=== PATIENT | male | born 1960 | race Caucasian/White ===

== ENCOUNTER 2023-06-16 07:28 | Inpatient (IN) | payer OTHER ==
[~2023-06-16] VITALS: Ht 180.3 cm; Wt 48.5 kg
[2023-06-16 09:09] LABS: PROTHROMBIN TIME 10.9 sec (9.6-11.0)
[2023-06-16 09:16] LABS: ALANINE AMINOTRANSFERASE 21 IU/L (10-49); ALBUMIN 4.9 g/dL (3.2-4.8); ASPARTATE AMINOTRANSFERASE 24 IU/L (<34); BILIRUBIN TOTAL 0.5 mg/dL (0.1-1.0); CALCIUM 9.4 mg/dL (8.7-10.4); CARBON DIOXIDE 25 mEq/L (21-32); CHLORIDE 103 mEq/L (98-107); GLUCOSE 119 mg/dL (70-105); POTASSIUM 4.3 mEq/L (3.5-5.1); PROTEIN TOTAL 8.2 g/dL (6.0-8.3); SODIUM 136 mEq/L (136-145); TROPONIN I HIGH SENSITIVITY 15 ng/L (3.0-53); UREA NITROGEN BLOOD 9 mg/dL (9-23)
[2023-06-16 09:19] LABS: BASOPHILS % 1.1 % (0.0-2.0); EOSINOPHILS % 1.3 % (0.0-5.0); HEMATOCRIT. 42.2 % (42.0-52.0); HEMOGLOBIN. 14.5 g/dL (14.0-18.0); LYMPHOCYTES % 29.4 % (20.0-50.0); MEAN CORPUSCULAR HEMOGLOBIN 31.8 pg (28.0-32.0); MEAN CORPUSCULAR HGB CONC 34.4 g/dL (31.0-37.0); MEAN CORPUSCULAR VOLUME 92.6 fL (80.0-94.0); MEAN PLATELET VOLUME 7.5 fl (7.4-10.4); MONOCYTES % 10.7 % (2.0-8.0); NEUTROPHILS % 57.5 % (40.0-76.0); PLATELET 250 x1000/uL (130-400); RED BLOOD CELL COUNT 4.55 mill/uL (4.7-6.1); WHITE BLOOD COUNT 5.9 x1000/uL (4.5-11.0)
[2023-06-16] MEDS: SODIUM CHLORIDE 0.45% 1,000 ML IV ONE (09:43)
[2023-06-16] MEDS ORDERED: HEPARIN 1000 UNITS/ML 10ML ONE ×4 (10:49→11:22)
[2023-06-16] MEDS ORDERED: LIDOCAINE HCL 1% 10 MG/ML 10ML VIAL ONE (10:49)
[2023-06-16] MEDS ORDERED: FENTANYL CITRATE/PF 50MCG/ML 2ML VIAL ONE ×2 (11:12→12:15)
[2023-06-16] MEDS ORDERED: MIDAZOLAM HCL 2 MG/2 ML VIAL ONE ×2 (11:12→12:15)
[2023-06-16] MEDS ORDERED: IODIXANOL 320MG/ML 100 ML BOTTLE IV ONE (12:05)
[2023-06-16] MEDS ORDERED: ASPIRIN 325MG EC TABLET PO ONE (13:06)
[2023-06-16] MEDS ORDERED: CLOPIDOGREL 75MG TABLET ONE (13:06)
[2023-06-16] MEDS ORDERED: ATROPINE SULFATE 1MG/10ML SYR IV PRN (13:30)
[2023-06-16] MEDS ORDERED: ACETAMINOPHEN 325MG TABLET PO PRN (13:30)
[2023-06-16] MEDS ORDERED: ONDANSETRON HCL 4MG/2ML INJ IV PRN (13:30)
[2023-06-16 16:00] VITALS: BP 160/75; PULSE 66; RESP 18; TEMP 97.7
[2023-06-16 16:48] VITALS: BP 160/75; PULSE 66; RESP 18; TEMP 97.7
[2023-06-16 20:00] VITALS: BP 153/68; PULSE 67; RESP 20; TEMP 97.8
[2023-06-16] MEDS: HYDRALAZINE HCL 100MG TABLET PO NR (20:11)
[2023-06-16] MEDS: AMLODIPINE 5MG TABLET PO SCH (20:12)
[2023-06-17] VITALS: BP 142/81; PULSE 77; RESP 18; TEMP 97.5
[2023-06-17 04:00] VITALS: BP 137/82; PULSE 75; RESP 12; TEMP 97.6
[2023-06-17 06:13] LABS: CALCIUM 8.8 mg/dL (8.7-10.4); CARBON DIOXIDE 25 mEq/L (21-32); CHLORIDE 103 mEq/L (98-107); CHOLESTEROL 136 mg/dL (<200); CREATININE 0.8 mg/dL (0.6-1.3); GLUCOSE 101 mg/dL (70-105); HDL CHOLESTEROL 31 mg/dL (>55); LDL CHOLESTEROL 57 mg/dL (5-100); POTASSIUM 3.8 mEq/L (3.5-5.1); SODIUM 135 mEq/L (136-145); TRIGLYCERIDE 372 mg/dL (0-150); UREA NITROGEN BLOOD 8 mg/dL (9-23)
[2023-06-17 06:17] LABS: BASOPHILS % 0.9 % (0.0-2.0); EOSINOPHILS % 2.3 % (0.0-5.0); HEMATOCRIT. 38.2 % (42.0-52.0); HEMOGLOBIN. 13.6 g/dL (14.0-18.0); LYMPHOCYTES % 30.6 % (20.0-50.0); MEAN CORPUSCULAR HEMOGLOBIN 32.7 pg (28.0-32.0); MEAN CORPUSCULAR HGB CONC 35.7 g/dL (31.0-37.0); MEAN CORPUSCULAR VOLUME 91.7 fL (80.0-94.0); MEAN PLATELET VOLUME 7.5 fl (7.4-10.4); MONOCYTES % 10.6 % (2.0-8.0); NEUTROPHILS % 55.6 % (40.0-76.0); PLATELET 222 x1000/uL (130-400); RED BLOOD CELL COUNT 4.17 mill/uL (4.7-6.1); RED CELL DISTRIBUTION WIDTH 13.7 % (11.6-14.6); WHITE BLOOD COUNT 5.4 x1000/uL (4.5-11.0)
[2023-06-17] MEDS: HYDRALAZINE HCL 50MG TABLET PO SCH (06:26)
[2023-06-17 08:00] VITALS: BP 144/65; PULSE 70; RESP 14; TEMP 98
[2023-06-17] MEDS: ASPIRIN 325MG TABLET PO SCH (09:19)
[2023-06-17] MEDS: CLOPIDOGREL 75MG TABLET PO SCH (09:20)
[2023-06-17] MEDS ORDERED: CLOP-31 PO (11:02)
[2023-06-17] MEDS ORDERED: AMLO5TAB88 PO (11:02)
[2023-06-17] MEDS ORDERED: HYDR50TA39 PO (11:02)
[2023-06-17] MEDS ORDERED: ATOR40TA70 MT (11:02)
[2023-06-17] MEDS ORDERED: ASPI-1497 MT (11:02)
[2023-06-17 11:55] VITALS: BP 140/79; PULSE 68; TEMP 98.6; O2SAT 97
[2023-06-17 12:00] VITALS: BP 140/89; PULSE 78; RESP 16; TEMP 98.6
== END 2023-06-17 13:06 | disposition home or self-care (01) | DRG 175 ==
LOC: ER 07:28 → 3WST 11:07 → EDBEDREQ 11:15
PROVIDERS: ADMIT Internal Medicine; ATTEND Internal Medicine
PROC: 4A023N7 Measurement of Cardiac Sampling and Pressure, Left Heart, Percutaneous Approach (ICD-10-PCS; principal; 2023-06-16)
PROC: 027135Z Dilation of Coronary Artery, Two Arteries with Two Drug-eluting Intraluminal Devices, Percutaneous Approach (ICD-10-PCS; 2023-06-16)
PROC: B211YZZ Fluoroscopy of Multiple Coronary Arteries using Other Contrast (ICD-10-PCS; 2023-06-16)
PROC: B215YZZ Fluoroscopy of Left Heart using Other Contrast (ICD-10-PCS; 2023-06-16)
DX: I25.110 Atherosclerotic heart disease of native coronary artery with unstable angina pectoris (principal); E66.09 Other obesity due to excess calories; E78.1 Pure hyperglyceridemia; G47.33 Obstructive sleep apnea (adult) (pediatric); I10 Essential (primary) hypertension; F17.200 Nicotine dependence, unspecified, uncomplicated; J44.9 Chronic obstructive pulmonary disease, unspecified; Z68.1 Body mass index [BMI] 19.9 or less, adult; I25.2 Old myocardial infarction; Z82.49 Family history of ischemic heart disease and other diseases of the circulatory system
CPT/HCPCS: 36415; 71045; 80048; 80053; 80061; 83880; 84484; 85025; 85347; 92928; 92929; 93005; 93458; 99285; C1725; C1769; C1874; C1887; C1893; J1644; J2250; J3010; J3490; Q9967